=== PATIENT | female | born 1950 | race Caucasian/White ===

== ENCOUNTER → 2016-06-22 | Day surgery (SDC) | payer OTHER ==
[2016-05-27 15:03] VITALS: Ht 162.6 cm; Wt 79.5 kg
[~2016-06-22] VITALS: Ht 162.6 cm; Wt 79.5 kg
[~2016-06-22] MED LIST: ACET-1256 PO; ACET1TAB84 PO; ALBU1AER9 INH; ALBUT NEB; AMOX25TA PO; BECL0.072 INH; BUPIVACAINE 0.25% 2.5MG/ML PF 10 ML VIAL INFIL ONE; CHOLCAP5 PO; DOCU100C31 PO; IPRASOL4 INH; IPRATROPIUM NEB; LIDOCAINE HCL 1% 20 ML VIAL ONE; MELA1TAB5 PO; MELA5CAP PO; META1TAB22 PO; MONT1TAB3 PO; MULT-506 PO; NAPR1TAB9 PO; OXYC1TAB3 PO; PANT40TA PO; PREDPOW63 PO; RXC5 PO; TURM1CAP2 PO; ZNTT/150 PO; [UNRECOGNIZED DRUG - OTHER] PO
--- NOTE | 2016-06-22 13:34 | History & Physical Bridge - [place] ---
H&P Re-Evaluation Bridge Note: I have examined the patient, reviewed the History & Physical and in the interval since the performance of the History & Physical I have noted the following changes of clinical significance: No changes noted
[2016-06-22 14:35] VITALS: TEMP 37.3
--- NOTE | 2016-06-22 14:36 | Discharge Instructions ---
Discharge Instructions Date of Service Jun 22, 2016. Visit Reason for Visit: Lumbar Facet Arthropathy Discharge Discharge Diagnosis / Problem: chronic low back pain Discharge Goals Goal(s): Decrease discomfort, Improve function Activity Recommendations Activity Limitations: resume your previous activity Anesthesia . Post Anesthesia Instructions: If you have had General Anesthesia or IV Sedation: * Do not drive today. * Resume driving when surgeon permits. * Do not make important decisions or sign legal documents today. * Call surgeon for: 1. Temperature elevations greater than 101 degrees F. 2. Uncontrollable pain. 3. Excessive bleeding. 4. Persistent nausea and vomiting. 5. Medication intolerance (nausea, vomiting or rash). * For nausea and vomiting use only clear liquids such as: tea, soda, bouillon until nausea subsides, then gradually increase diet as tolerated. * If you have any concerns or questions, call your surgeon's office. If physician is unavailable and it is an emergency, call 911 or go to the nearest emergency room. . Diet Recommendations Recommended Home Diet: resume previous diet Procedures Procedures Performed: Bilateral L4-5 radio Frequency Denervation. Pending Studies Studies pending at discharge: no Medical Emergencies . Who to Call and When: Medical Emergencies: If at any time you feel your situation is an emergency, please call 911 immediately. . Non-Emergent Contact Non-Emergency issues call your: Specialist . . "Provider Documentation" section prepared by Nicholas Estrada.
[2016-06-22 14:42] VITALS: BP 157/89; PULSE 91; O2SAT 96
--- NOTE | 2016-06-22 15:00 | OPERATIVE REPORT ---
DATE OF OPERATION: 06/22/2016 PREOPERATIVE DIAGNOSES: Lumbar facet arthropathy and chronic low back pain. POSTOPERATIVE DIAGNOSES: Same. PROCEDURE: Bilateral L4-L5 facet radiofrequency denervation. INDICATIONS: The patient is a 66-year-old white female who is bothered by chronic low back pain. She underwent a radiofrequency denervation at L4-L5 on the right side more than 8 months ago and is requesting another denervation as the pain has been escalating. She notes that she now has pain on both sides and decision is made to proceed with bilateral L4-L5 radiofrequency denervation at L4-L5 to eliminate the pain for an extended period. PHYSICAL EXAMINATION: Pleasant female seated comfortably in no apparent distress. Lumbar paraspinal muscles were palpated and tender bilaterally at the L4-L5 level, worse with extension. Normal lower extremity strength, intact sensation, and negative seated straight leg raises. CONSENT: Verbal and written consent was obtained from the patient. Risks and benefits were reviewed. Risks include, but are not limited to abscess, allergic reaction, and denervation. The patient wishes to proceed. DESCRIPTION OF PROCEDURE: The patient was taken back to the special procedures room of the [facility], where she was maintained in a prone position. Backside was cleansed with Betadine x3 and a dry sterile dressing was applied. Fluoroscope was used to identify the left L4 transverse process junction and the left L5 transverse process junction. The overlying skin was anesthetized with 1.25 mL of lidocaine 1% at each level. She then underwent placement of a 22-gauge 10-cm Eva needle at each site. It contacted the bony target. She underwent sensory stimulation and was sensitive to 0.1 volts at L4 and 0.2 volts at L5. Motor stimulation provoked robust paraspinal spasms, but nothing radiating down the legs. She then underwent anesthetization with an additional mL of lidocaine at each site and then radiofrequency denervation at 80 degrees 100 seconds x2 at each site and then following the denervation, anesthetization with bupivacaine 0.25% 1 mL at each site. The right L5 transverse process junction and the right L4 transverse process junction were then fluoroscopically identified. Overlying skin was anesthetized with 1.25 mL of lidocaine 1% with a 25-gauge 1.5-inch needle. A 22-gauge 10-cm Amorita needle was then contacted the bone at each site. Sensory stimulation was present at 0.1 volts at both sites. Motor stimulation provoked localized paraspinal spasms nothing twitching down the leg. She underwent injection of anesthetization of 1% lidocaine at each site and then radiofrequency denervation at 80 degrees 100 seconds x2 at each site and then following the denervation, injection of bupivacaine 0.25% 1 mL at each site. Injections were well tolerated. DISPOSITION: 1. The patient is taken out into the discharge recovery area, where she will be discharged home once discharge criteria have been met. 2. Follow up in the [facility] office in 2-4 weeks. I attest to the content of the Intraoperative Record and any orders documented therein. Any exceptio ns are noted below.
== END | disposition home or self-care (01) ==
LOC: X.SURG 12:50
PROVIDERS: ATTEND Physical Medicine & Rehabilitation
DX: M47.816 Spondylosis without myelopathy or radiculopathy, lumbar region (principal); Z79.899 Other long term (current) drug therapy

== ENCOUNTER → 2016-11-11 | Outpatient (CLI) | payer OTHER ==
[~2016-11-11] MED LIST changes: -ALBUT NEB; -BUPIVACAINE 0.25% 2.5MG/ML PF 10 ML VIAL INFIL ONE; -CHOLCAP5 PO; -IPRATROPIUM NEB; -LIDOCAINE HCL 1% 20 ML VIAL ONE; -MELA1TAB5 PO; -MULT-506 PO; -NAPR1TAB9 PO; -PANT40TA PO; -PREDPOW63 PO; -TURM1CAP2 PO; -[UNRECOGNIZED DRUG - OTHER] PO
--- NOTE | 2016-11-11 17:35 | DIAGNOSTIC IMAGING REPORT ---
CHEST 2 VIEWS ROUTINE HISTORY: 66 years-old Female preoperative exam without reported acute chest complaints. COMPARISON: Chest radiograph 11/26/2015 TECHNIQUE: Frontal and lateral views of the chest FINDINGS: Cardiomediastinal and hilar silhouettes are within normal limits. There is atherosclerosis of the aorta. Mild biapical pleural-parenchymal scarring is noted. No pneumothorax, pleural effusion, focal airspace consolidation or overt pulmonary edema. The bones appear grossly intact. IMPRESSION: No acute cardiopulmonary process. The above report was generated using voice recognition software. It may contain grammatical, syntax or spelling errors. Electronically signed by: Jeet Luna M.D. 11/11/2016 5:34 PM Dictated Date/Time: 11/11/2016 5:33 PM
[2016-11-11 18:25] LABS: URINE APPEARANCE CLEAR (CLEAR); URINE BILIRUBIN NEG (NEG); URINE COLOR YELLOW; URINE NITRITE NEG (NEG); URINE PH 5.5 (4.5-7.5); URINE SPECIFIC GRAVITY 1.012 (1.000-1.030); UROBILINOGEN NEG (NEG)
[2016-11-11 18:26] LABS: BASO % 0.5 %; BASO ABS # 0.04 K/uL (0-0.2); COMPLETE YES; EOS % 2.6 %; HEMATOCRIT 40.7 % (37-47); IG% 0.4 %; LYMPH % 23.7 %; LYMPH ABS # 2.02 K/uL (1.2-3.4); MEAN CELL VOLUME 83.7 fL (80-100); MEAN CORPUSCULAR HEMOGLOBIN 28.8 pg (25-34); MEAN CORPUSCULAR HGB CONC 34.4 g/dl (32-36); MEAN PLATELET VOLUME 9.2 fL (7.4-10.4); MONO % 6.5 %; NEUT % 66.3 %; PLATELET COUNT 194 K/uL (130-400); RED BLOOD COUNT 4.86 M/uL (4.2-5.4); WHITE BLOOD COUNT 8.51 K/uL (4.8-10.8)
[2016-11-11 18:27] LABS: MANUAL MICROSCOPIC REQUIRED? NO; REVIEW REQ? YES
[2016-11-11 18:51] LABS: BLOOD UREA NITROGEN 18 mg/dl (7-18); BUN/CREATININE RATIO 19.8 (10-20); CALCIUM 9.1 mg/dl (8.5-10.1); CARBON DIOXIDE 29 mmol/L (21-32); CHLORIDE 105 mmol/L (98-107); CREATININE 0.89 mg/dl (0.60-1.20); GLUCOSE 94 mg/dl (70-99); POTASSIUM 3.7 mmol/L (3.5-5.1); SODIUM 140 mmol/L (136-145)
[2016-11-11 20:08] LABS: LYME DISEASE AB IGG NEG (NEG); LYME DISEASE AB IGM NEG (NEG)
== END | disposition home or self-care (01) ==
LOC: C.LAB 17:03
PROVIDERS: ATTEND Orthopaedic Surgery Orthopaedic Surgery of the Spine
DX: M48.06 Spinal stenosis, lumbar region (principal); A69.20 Lyme disease, unspecified

== ENCOUNTER 2016-11-30 09:50 | Inpatient (IN) | payer OTHER ==
[2016-09-21 11:56] VITALS: BMI 32.0
--- NOTE | 2016-09-21 12:37 | PAT Medication Instructions ---
Service Date Sep 21, 2016. Current Home Medication List Acetaminophen (Tylenol), 500 MG PO BID PRN for Pain Albuterol (Proair Hfa), 2 PUFFS INH Q4 PRN for SOB/Wheezing Beclomethasone Dipropionate (Qvar), 2 PUFFS INH BID PRN for SOB/Wheezing Cholecalciferol (Vitamin D3), 5,000 INTUNIT PO HS Docusate Sodium (Docusate Sodium), 1 CAP PO BID Ipratropium-Albuterol (Duoneb), 1 TREATMENT INH Q4H PRN for PRN Melatonin (Melatonin), 5 MG PO HS Montelukast Sodium (Singulair), 10 MG PO HS Naproxen (Aleve), 220 MG PO BID Pantoprazole (Protonix), 40 MG PO QAM PRN for PRN Ranitidine (Zantac), 150 MG PO QAM PRN for PRN Turmeric (Curcuma Longa) (Turmeric), 450 MG PO BID [Prednisone], 1 TAB PO UD Medication Instructions For Your Scheduled Surgery - Check with surgeon for instructions: Naproxen (Aleve), 220 MG PO BID - Continue as directed: [Prednisone], 1 TAB PO UD - Hold the following medications 2 weeks prior to surgery: Turmeric (Curcuma Longa) (Turmeric), 450 MG PO BID - Hold the following medications the morning of surgery: Ranitidine (Zantac), 150 MG PO QAM PRN for PRN Docusate Sodium (Docusate Sodium), 1 CAP PO BID - Take the following medications the morning of surgery with a sip of water: Pantoprazole (Protonix), 40 MG PO QAM PRN for PRN Ipratropium-Albuterol (Duoneb), 1 TREATMENT INH Q4H PRN for PRN (if needed) Acetaminophen (Tylenol), 500 MG PO BID PRN for Pain (if needed) Albuterol (Proair Hfa), 2 PUFFS INH Q4 PRN for SOB/Wheezing (bring with you to hospital morning of surgery/use if needed) Beclomethasone Dipropionate (Qvar), 2 PUFFS INH BID PRN for SOB/Wheezing (if needed) - Take the following medications as scheduled the night before surgery: Pantoprazole (Protonix), 40 MG PO QAM PRN for PRN (if needed) Montelukast Sodium (Singulair), 10 MG PO HS Melatonin (Melatonin), 5 MG PO HS Ipratropium-Albuterol (Duoneb), 1 TREATMENT INH Q4H PRN for PRN (if needed) Docusate Sodium (Docusate Sodium), 1 CAP PO BID Cholecalciferol (Vitamin D3), 5,000 INTUNIT PO HS Acetaminophen (Tylenol), 500 MG PO BID PRN for Pain (if needed) Albuterol (Proair Hfa), 2 PUFFS INH Q4 PRN for SOB/Wheezing (if needed) Beclomethasone Dipropionate (Qvar), 2 PUFFS INH BID PRN for SOB/Wheezing (if needed) If you have any questions please call us at [phone] or [phone] or [phone]
[2016-09-21 13:37] LABS: CALCIUM 8.7 mg/dl (8.5-10.1); CREATININE 0.78 mg/dl (0.60-1.20); POTASSIUM 3.8 mmol/L (3.5-5.1)
[2016-09-21 14:30] LABS: BASO % 0.6 %; BASO ABS # 0.03 K/uL (0-0.2); COMPLETE YES; EOS % 2.8 %; HEMATOCRIT 38.8 % (37-47); IG% 0.4 %; LYMPH % 30.3 %; LYMPH ABS # 1.62 K/uL (1.2-3.4); MEAN CELL VOLUME 82.7 fL (80-100); MEAN CORPUSCULAR HEMOGLOBIN 27.3 pg (25-34); MEAN PLATELET VOLUME 9.3 fL (7.4-10.4); MONO % 8.1 %; NEUT % 57.8 %; PLATELET COUNT 191 K/uL (130-400); RED BLOOD COUNT 4.69 M/uL (4.2-5.4); WHITE BLOOD COUNT 5.34 K/uL (4.8-10.8)
[2016-11-07 10:54] VITALS: BMI 32.0
[~2016-11-30] VITALS: Ht 162.6 cm; Wt 84.0 kg
[2016-11-30] VITALS (8 sets, daily range): BP systolic 115–167; BP diastolic 72–96; PULSE 60–91; TEMP 34.7–36.6; O2SAT 97–100; Ht 162.6 cm; Wt 84.0 kg
[~2016-11-30 09:50] MED LIST changes: -ACET1TAB84 PO; +CEFAZOLIN 2000 MG/60 ML D5W IV SCH; +LACTATED RINGER'S 1000ML 1,000 ML IV SCH; -RXC5 PO
[2016-11-30] MEDS ORDERED: ACET1TAB84 PO (10:12)
[2016-11-30] MEDS ORDERED: MIDAZOLAM HCL 1 MG/ML 2ML VIAL ONE (11:04)
[2016-11-30] MEDS ORDERED: FENTANYL CITRATE INJ 50 MCG/1 ML 2 ML VIAL ONE ×4 (11:04→14:01)
--- NOTE | 2016-11-30 11:06 | History and Physical ---
History & Physical Date Nov 30, 2016. Chief Complaint Back and leg pain History of Present Illness The patient is a 66 year old female with complaints of Past Medical/Surgical History Surgical Problems: (1) Post-operative state Additional History Hepatic Disease: No Endocrine Disorder: No Kidney Disease: No Hypertension: No Heart Disease: No Bleeding Tendencies: No Infectious Diseases: No Allergies Coded Allergies: Adhesives (Verified Allergy, Mild, RED ITCHY WITH [employer]ES [employer] TAPE-PAPER AND FABRIC TAPE OK, 11/30/16) Nickel (Verified Allergy, Mild, CONTACT DERMATITIS, 11/30/16) Dog Dander (Verified Allergy, Unknown, ITCHING, 11/30/16) Molds and Smuts (Verified Allergy, Unknown, RUNNY NOSE/THROAT PRURITIS, ) Gabapentin (Verified Adverse Reaction, Intermediate, "MAKE ME SPACEY AND DISORIENTATION TO SURROUNDINGS"., 11/30/16) Codeine (Verified Adverse Reaction, Mild, DROWSY, 11/30/16) Lorazepam (Verified Adverse Reaction, Mild, ANXIETY, 11/30/16) Meperidine (Verified Adverse Reaction, Mild, ANXIETY, DELUSIONS, 11/30/16) Home Medications Scheduled Acetaminophen (Tylenol Arthritis Ext Rel), 650 MG PO BID Amoxapine (Amoxapine), 25 MG PO QAM Docusate Sodium (Docusate Sodium), 1 CAP PO BID Melatonin (Melatonin), 5 MG PO HS Montelukast Sodium (Singulair), 10 MG PO QAM Scheduled PRN Albuterol (Proair Hfa), 2 PUFFS INH Q4 PRN for SOB/Wheezing Beclomethasone Dipropionate (Qvar), 2 PUFFS INH BID PRN for SOB/Wheezing Ipratropium-Albuterol (Duoneb), 1 TREATMENT INH Q4H PRN for PRN Metaxalone (Skelaxin), 200 MG PO TID PRN for Muscle Spasms Oxycodone Immediate Rel Tab (Roxicodone Ir), 2.5 MG PO Q4H PRN for Severe Pain Ranitidine (Zantac), 150 MG PO QAM PRN for PRN Physical Examination Skin: warm/dry, no rash Eyes: normal inspection, EOMI, sclerae normal ENT: normal ENT inspection, pharynx normal Head: normocephalic, atraumatic Neck: supple, no adenopathy, trachea midline Respiratory/Chest: lungs clear, normal breath sounds, no respiratory distress Cardiovascular: regular rate, rhythm, no edema, no murmur Abdomen / GI: normal bowel sounds, non tender Back: normal inspection Extremities: normal inspection, normal range of motion Neurologic/Psych: no motor/sensory deficits, alert, normal reflexes, oriented x 3 Diagnosis Lumbar spinal stenosis with spondylolisthesis Plan of Treatment Lumbar decompression fusion L3 4 L4 5
[2016-11-30] MEDS ORDERED: BUPIVACAINE/EPINEPHRINE 0.5% MPF 1:200,000 30 ML VIAL ONE (11:21)
[2016-11-30] MEDS ORDERED: BACITRACIN 50000 UNIT VIAL ONE (11:21)
[2016-11-30] MEDS ORDERED: ONDANSETRON INJ 2 MG/ML 2 ML VIAL IV PRN ×2 (11:30→14:15)
[2016-11-30] MEDS ORDERED: HYDROmorphone INJ 2 MG/ML SYR/VIAL IV PRN (11:30)
[2016-11-30] MEDS ORDERED: PHENYLEPHRINE 100MCG/ML 5ML SYR IV PRN (11:30)
[2016-11-30] MEDS ORDERED: EpHEDrine SULFATE INJ 50 MG/ML AMP IV PRN (11:30)
[2016-11-30] MEDS ORDERED: ATROPINE SULFATE 0.1 MG/ML 5ML SYR IV PRN (11:30)
[2016-11-30] MEDS ORDERED: HYDROmorphone INJ 2 MG/ML SYR/VIAL ONE ×2 (11:55→14:07)
[2016-11-30] MEDS ORDERED: PROPOFOL IV EMULSION 10 MG/ML 20 ML VIAL IV ONE (12:15)
[2016-11-30] MEDS ORDERED: LIDOCAINE HCL 2% 2 ML VIAL (20MG/ML) ONE (12:15)
[2016-11-30] MEDS ORDERED: ESMOLOL HCL 10 MG/ML 10 ML VIAL ONE (12:15)
[2016-11-30] MEDS ORDERED: METOPROLOL TARTRATE 1 MG/ML VIAL ONE (12:15)
[2016-11-30] MEDS ORDERED: ONDANSETRON INJ 2 MG/ML 2 ML VIAL ONE ×2 (12:15→14:08)
[2016-11-30] MEDS ORDERED: DEXAMETHASONE SOD INJ 4 MG/ML VIAL ONE (12:15)
[2016-11-30] MEDS ORDERED: ALBUMIN HUMAN 5% 12.5 GM/250 ML VIAL IV ONE (13:30)
[2016-11-30] MEDS ORDERED: FLOSEAL HEMOSTATIC MATRIX 10ML TOP ONE (14:00)
[2016-11-30] MEDS ORDERED: SODIUM CHLORIDE 0.9% 1000ML 1,000 ML IV SCH (14:03)
[2016-11-30] MEDS ORDERED: ROCURONIUM BROMIDE 10 MG/ML 5 ML VIAL IV ONE (14:08)
[2016-11-30] MEDS ORDERED: GLYCOPYRROLATE INJ 0.2 MG/ML VIAL ONE (14:08)
[2016-11-30] MEDS ORDERED: NEOSTIGMINE METHYLSULFATE 1 MG/ML 10ML VIAL ONE (14:08)
[2016-11-30] MEDS ORDERED: PHENYLEPHRINE 100MCG/ML 5ML SYR ONE (14:08)
[2016-11-30] MEDS ORDERED: EpHEDrine SULFATE 50MG/5ML SYR ONE (14:08)
--- NOTE | 2016-11-30 14:13 | [facility] Operative Report ---
Operative Report Operative Date Nov 30, 2016. Pre-Operative Diagnosis Lumbar spinal stenosis with spondylolisthesis Post-Operative Diagnosis Lumbar spinal stenosis with spondylolisthesis Procedure(s) Performed #1 lumbar decompression medial facetectomies foraminotomies L2 3 L3 4 for 5. #2 posterior spinal fusion L3 4 L4 5. #3 posterior segmental instrumentation L3 4 L4 5. #4 interbody fusion L3 4 L4 5. #5 placement peek cage 12 x 22 at L3 4 and L4 5. #6 locally harvested morcellized autograft in the posterior lateral gutters. #7 ostial amp in the interbody space and posterior lateral gutters. Surgeon Dr. Nicholas Feng Can Carrier Surgeon(s) YONIS Haider Estimated Blood Loss 525ml Findings Severe spinal stenosis and spondylolisthesis Specimens none per surgeon Description of Procedure He shouldn't was met with preoperatively case discussed all questions are dressed. After informed consent patient was taken the up suite and intubated placed in prone position the [place] table top Tito frame. All bony prominences and eyes were inspected to ensure there is no external pressure. Lumbar spines prepped and draped nostril fashion. Sharp dissection with the assistance of Bovie cautery was performed onto an exposing the lamina and transverse processes of L 3 L4-L5 bilaterally. From a caudal to cephalad fashion complete laminectomy of L4 and L3 and partial laminectomy of L2 was performed addressing severe lateral recessed foraminal stenosis. Pedicle screws then placed in L3 L4-L5 bilaterally. Through a transforaminal approach on the right a complete discectomy of L4 5 was performed and an plates curetted to subcortical bleeding bone. A 12 x 20 mm peek cage filled with ostial amp was then tapped in position. Again through a trans-foraminal approach on the right a complete discectomy of L3 4 was performed and plate created to subcortical bleeding bone and again a 12 x 22 mm peek cage filled with ostial amp tapped in position. Purposes rods were then contoured and placed compressed and locked and final position bilaterally. The transverse processes of L3 L4-L5 burred to subcortical bleeding bone. Remaining ostial amp locally harvested morcellized autograft was then placed in the posterior lateral gutters. 15 round DORI drain was inserted. Incision was then closed with Vicryl in the fascia 2-0 Vicryl subcutaneously for Monocryl for final skin closure Steri-Strip sterile dressing placed. Patient we can take PACU stable condition. Please note Christina Mckinley was present at the entire procedure involved in patient positioning complex portions of the surgery and final skin closure. I attest to the content of the Intraoperative Record and any orders documented therein. Any exceptions are noted below.
[2016-11-30] MEDS ORDERED: ACETAMINOPHEN IV 100 ML IV PRN (14:15)
[2016-11-30] MEDS ORDERED: BISACODYL 10 MG SUPP PR PRN (14:15)
[2016-11-30] MEDS ORDERED: DO NOT ADMINISTER FLU VACCINE PRN ×3 (14:15)
[2016-11-30] MEDS ORDERED: BECLOMETHASONE HFA 40 MCG INHALER INH PRN (14:15)
[2016-11-30] MEDS ORDERED: ALBUT/IPRATROP 3MG/0.5MG NEB 3 ML VIAL INH PRN (14:15)
[2016-11-30] MEDS ORDERED: MAGNESIUM HYDROXIDE SUSP 30 ML UDC PO PRN (14:15)
[2016-11-30] MEDS ORDERED: SOD PHOSPHATE/SOD BIPHOSPHATE ENEMA 132 ML BTL PR PRN (14:15)
[2016-11-30] MEDS ORDERED: ALUMINUM/MAGNESIUM SUSP 30 ML UDC PO PRN (14:15)
[2016-11-30] MEDS ORDERED: DO NOT ADMINISTER PNEUMOCOCCAL VACCINE PRN ×2 (14:15)
[2016-11-30] MEDS ORDERED: ALBUTEROL HFA 8 GM INHALER INH PRN (14:15)
[2016-11-30] MEDS ORDERED: hydrOXYzine HCL 25 MG TAB PO PRN (14:15)
[2016-11-30] MEDS ORDERED: METOCLOPRAMIDE HCL INJ 5 MG/ML 2 ML VIAL IV PRN (14:15)
[2016-11-30] MEDS ORDERED: NALOXONE HCL 0.4 MG/1 ML VIAL/CARP IV PRN ×2 (14:15)
[2016-11-30] MEDS ORDERED: RANITIDINE HCL 150 MG TAB PO PRN (14:15)
[2016-11-30] MEDS ORDERED: FAMOTIDINE 20 MG TAB PO PRN (14:15)
[2016-11-30] MEDS ORDERED: PROMETHAZINE HCL INJ 12.5 MG in SODIUM CHLORIDE 0.9% 50ML 50 ML IV PRN (14:15)
[2016-11-30] MEDS: HYDROmorphone HCL 0.5MG/ML 50 ML CASSETTE IV PRN ×3 (14:35→23:04)
--- NOTE | 2016-11-30 14:44 | DIAGNOSTIC IMAGING REPORT ---
LUMBAR SPINE, INTRAOPERATIVE FLUOROSCOPY HISTORY: L3-L5 decompression and fusion. FLUOROSCOPY TIME: 20 seconds. FINDINGS: Intraoperative fluoroscopy was provided for the lumbar spine. 2 fluoroscopic spot images were obtained. Posterior decompression fusion from L3 through L5 with pedicle screws and rods. The hardware appears intact. IMPRESSION: Fluoroscopy provided for a L3-L5 posterior decompression and fusion. Electronically signed by: David Omalley M.D. 11/30/2016 2:43 PM Dictated Date/Time: 11/30/2016 2:42 PM
--- NOTE | 2016-11-30 15:13 | Anesthesiology Progress Note ---
Anesthesia Post Op Note Date & Time Nov 30, 2016 at 15:13 Vital Signs Pain Intensity: 4 Vital Signs Past 12 Hours Date Time Temp Pulse Resp B/P (MAP) Pulse Ox O2 Delivery O2 Flow Rate FiO2 11/30/16 15:10 36.4 82 16 144/85 99 Nasal Cannula 4 11/30/16 15:08 77 16 98 11/30/16 15:08 79 16 11/30/16 15:06 139/77 11/30/16 15:03 86 16 11/30/16 15:03 87 16 99 11/30/16 15:01 124/87 11/30/16 14:58 79 15 99 11/30/16 14:58 78 15 11/30/16 14:56 130/84 11/30/16 14:53 79 17 11/30/16 14:53 82 17 98 11/30/16 14:52 68 19 98 11/30/16 14:52 69 19 11/30/16 14:51 131/86 11/30/16 14:47 86 23 99 11/30/16 14:47 85 23 11/30/16 14:46 70 17 139/80 99 11/30/16 14:46 70 17 11/30/16 14:41 140/77 11/30/16 14:36 87 12 142/84 99 11/30/16 14:36 86 12 11/30/16 14:31 84 17 11/30/16 14:31 85 17 150/82 100 11/30/16 14:26 84 16 149/77 99 11/30/16 14:26 84 16 11/30/16 14:21 36.1 95 16 131/80 98 Oxymask 10 11/30/16 14:21 86 12 131/80 98 11/30/16 14:21 85 12 11/30/16 10:24 36.5 89 18 167/96 97 Room Air Notes Mental Status: alert / awake / arousable, participated in evaluation Pt Amnestic to Procedure: Yes Nausea / Vomiting: adequately controlled Pain: adequately controlled Airway Patency, RR, SpO2: stable & adequate BP & HR: stable & adequate Hydration State: stable & adequate Anesthetic Complications: no major complications apparent
[2016-11-30] MEDS: SODIUM CHLORIDE 0.9% 1000ML 1,000 ML IV SCH ×2 (17:00→22:54)
[2016-11-30] MEDS: DEXAMETHASONE INJ 6 MG in SYRINGE 0 ML IV SCH ×2 (17:01→23:49)
[2016-11-30] MEDS: CEFAZOLIN IV 2,000 MG in DEXTROSE 5% 50ML 50 ML IV SCH (20:10)
[2016-11-30] MEDS: DOCUSATE SODIUM/SENNA 50/8.6MG TAB PO SCH (21:26)
[2016-11-30] MEDS: DOCUSATE SODIUM 100 MG CAP PO SCH (21:26)
[2016-11-30] MEDS: METAXALONE 800 MG TAB PO PRN (21:26)
[2016-12-01 03:00] VITALS: BP 124/80; PULSE 96; TEMP 36.7; O2SAT 96
[2016-12-01] MEDS: CEFAZOLIN IV 2,000 MG in DEXTROSE 5% 50ML 50 ML IV SCH (03:36)
[2016-12-01] MEDS ORDERED: HYDROmorphone INJ 0.5 MG/0.5 ML SYR IV PRN (06:00)
[2016-12-01] MEDS ORDERED: DC PCA SCH (06:00)
[2016-12-01] MEDS ORDERED: NURSING DECISION MEDICATION ORDER SCH (06:00)
[2016-12-01] MEDS ORDERED: HYDROmorphone INJ 1 MG/ML SYR IV PRN (06:00)
[2016-12-01 06:14] LABS: BASO % 0.1 %; BASO ABS # 0.01 K/uL (0-0.2); COMPLETE YES; HEMATOCRIT 29.8 % (37-47); IG% 0.4 %; LYMPH % 5.3 %; LYMPH ABS # 0.79 K/uL (1.2-3.4); MEAN CELL VOLUME 85.1 fL (80-100); MEAN CORPUSCULAR HEMOGLOBIN 28.9 pg (25-34); MEAN CORPUSCULAR HGB CONC 33.9 g/dl (32-36); MEAN PLATELET VOLUME 8.8 fL (7.4-10.4); MONO % 1.5 %; NEUT % 92.7 %; PLATELET COUNT 178 K/uL (130-400); WHITE BLOOD COUNT 14.92 K/uL (4.8-10.8)
[2016-12-01 06:43] LABS: BUN/CREATININE RATIO 22.1 (10-20); CALCIUM 8.2 mg/dl (8.5-10.1); CREATININE 0.75 mg/dl (0.60-1.20); POTASSIUM 4.1 mmol/L (3.5-5.1)
[2016-12-01 07:06] VITALS: BP 131/73; PULSE 98; TEMP 36.7; O2SAT 90
[2016-12-01] MEDS: MONTELUKAST SOD 10 MG TAB PO SCH (08:34)
[2016-12-01] MEDS: OXYCODONE HCL IR 5 MG TAB (IMMEDIATE RELEASE) PO PRN ×3 (08:34→21:45)
[2016-12-01] MEDS: DOCUSATE SODIUM 100 MG CAP PO SCH ×2 (08:34→21:44)
[2016-12-01] MEDS: DEXAMETHASONE INJ 6 MG in SYRINGE 0 ML IV SCH (08:35)
--- NOTE | 2016-12-01 10:34 | Progress Note ---
Progress Note Date of Service Dec 01, 2016. Progress Note Patient's back pain is well-controlled. Leg pain improved. Vital signs are stable. DORI drain decreasing appropriately. Hematocrit stable. On exam she is good strength testing bilateral lower extremity. Assessment status post lumbar decompression fusion. Plan at this time initiate physical therapy advance her bowel regiment. Considering possible rehabilitation placement Monday or Monday.
--- NOTE | 2016-12-01 11:00 | Anesthesiology Progress Note ---
Anesthesia Post Op Note Date & Time Dec 01, 2016 at 10:58 Vital Signs Pain Intensity: 2.0 Vital Signs Past 12 Hours Date Time Temp Pulse Resp B/P (MAP) Pulse Ox O2 Delivery O2 Flow Rate FiO2 12/01/16 07:25 Room Air 12/01/16 07:06 36.7 98 16 131/73 (92) 90 Room Air 12/01/16 03:00 36.7 96 16 124/80 (95) 96 Nasal Cannula 1.0 11/30/16 23:50 Nasal Cannula 2.0 11/30/16 23:40 36.6 87 16 118/79 (92) 100 Nasal Cannula 4.0 Notes Mental Status: alert / awake / arousable, participated in evaluation Pt Amnestic to Procedure: Yes Nausea / Vomiting: adequately controlled Pain: adequately controlled Airway Patency, RR, SpO2: stable & adequate BP & HR: stable & adequate Hydration State: stable & adequate Anesthetic Complications: no major complications apparent
[2016-12-01 12:14] VITALS: BP 123/78; PULSE 92; TEMP 37; O2SAT 93
[2016-12-01] MEDS ORDERED: NURSING VERBAL MED ORDER ONE (15:00)
[2016-12-01 15:07] VITALS: BP 177/92
[2016-12-01 15:50] VITALS: BP 151/89; PULSE 94; TEMP 36.9; O2SAT 96
[2016-12-01] MEDS: METAXALONE 800 MG TAB PO PRN (16:05)
[2016-12-01] MEDS: AMOXAPINE PO SCH (17:28)
[2016-12-01] MEDS: ACETAMINOPHEN 500 MG TAB PO PRN (21:45)
[2016-12-01] MEDS: DOCUSATE SODIUM/SENNA 50/8.6MG TAB PO SCH (21:59)
[2016-12-01 23:51] VITALS: BP 157/87; PULSE 109; TEMP 36.8; O2SAT 95
[2016-12-02] MEDS: METAXALONE 800 MG TAB PO PRN ×3 (00:40→23:30)
[2016-12-02] MEDS: OXYCODONE HCL IR 5 MG TAB (IMMEDIATE RELEASE) PO PRN ×4 (02:13→17:20)
[2016-12-02] MEDS: ACETAMINOPHEN 500 MG TAB PO PRN ×2 (06:22→20:40)
[2016-12-02] MEDS: POLYETHYLENE (MIRALAX) 17 GM PACK PO SCH ×4 (06:23→23:29)
[2016-12-02 07:40] VITALS: BP 156/93; PULSE 101; TEMP 36.8; O2SAT 97
[2016-12-02] MEDS: MONTELUKAST SOD 10 MG TAB PO SCH (08:35)
[2016-12-02] MEDS: DOCUSATE SODIUM 100 MG CAP PO SCH ×2 (08:50→20:39)
[2016-12-02] MEDS: AMOXAPINE PO SCH (08:50)
[2016-12-02] MEDS ORDERED: RXC5 PO (09:59)
--- NOTE | 2016-12-02 09:59 | Discharge Instructions ---
Discharge Instructions Date of Service Dec 02, 2016. Admission Reason for Admission: Spinal Stenosis Discharge Discharge Diagnosis / Problem: lumbar stenosis Discharge Goals Goal(s): Improve function Activity Recommendations Activity Limitations: per Instructions/Follow-up section . Instructions / Follow-Up Instructions / Follow-Up ACTIVITY RECOMMENDATIONS: SELF CARE INSTRUCTIONS AFTER THORACIC/LUMBAR FUSIONS 1. You may walk to your tolerance. It is good exercise for your legs and back. Expect some back and intermittent leg aches and pains. 2. You may perform "counter-top" level activities (make a sandwich, kraig with a project, etc.). 3. No bending or lifting of more than 10 pounds or back twisting of any nature (roll like a log when turning in bed). 4. You may ride in a car for 20-30 minutes at a time. No driving until after your first visit with your doctor. 5. Frequent changes of position and restricting sitting to 30 minutes at a time will help limit the amount of back spasms and stiffness you may experience. 6. You may discontinue the use of ambulatory aids (cane, crutches, etc.) once your strength and confidence allow. 7. You may supervisor asphalt paving the shower and let water strike your incision when you arrive home at least once daily. Do not take a tub bath, sit in a hot tub or go into a swimming pool until after your first recheck in the office. SPECIAL CARE INSTRUCTIONS: VERY IMPORTANT TO READ AND REVIEW A. Your surgical incision has been closed with a cosmetic suture under the skin that will dissolve in about 6 weeks. In 14 days, you can use a pair of clean scissors and cut the suture that is left outside of the skin at the ends of your incision. 1. The small skin tapes can be removed 7 days after surgery if they have not fallen off by that point. 2. You may keep the wound open to air as much as possible to promote healing after post-op day number 5 unless told otherwise by your doctor. 3. If you think the wound looks like it is becoming infected (redness or worsening drainage) and/or you are experiencing fever, chill or worsening back pain and muscle spasms, contact the office so that we may evaluate you as soon as possible. B. Complications are uncommon, but please contact us if you have any signs or symptoms of: 1. wound infection (fever higher than 102.5 degrees F, redness, separation of wound, drainage, or increasing pain from the incision) 2. blood clots in legs (pain, swelling, redness and warmth in legs) 3. urinary tract infection (fever higher than 102.5 degrees F, burning upon urination or increased frequency of urination) 4. nerve problems (inability to walk on your toes or heels, numbness, loss of bowel or bladder control) 5. any other symptoms that concern you C. Please call the office at if you have any concerns or questions about your operation or recovery. D. No smoking! Smoking drastically decreases the chance of a solid fusion. E. Do not take any anti-inflammatory medications (Indocin, Advil, Motrin, Aspirin, Naprosyn, etc.) as these may inhibit the chance of a solid fusion. Tylenol is okay to take for pain. MANAGING PAIN AFTER SPINAL SURGERY 1. Narcotic medication is intended for short-term use and will be provided for surgical pain. Surgical pain usually lasts for a period of 4-6 weeks. Narcotic medication includes Percocet, Vicodin, Darvocet, Tylenol #3 or Lortab. 2. Longer-term pain is more appropriately treated with non-narcotic medication such as Tylenol ES. 3. Muscle spasm is not appropriately treated with narcotics. Muscle relaxers such as Soma, Flexeril or Skelaxin can be used along with Tylenol ES. 4. Remember that we all live with some "aches and pains". This is not unusual or uncommon after an injury or as we get older. a. Back pain is expected and may include muscle spasms for 4 to 6 weeks after surgery. The pain should gradually improve. If the pain worsens for no apparent reason, please contact the office. b. Intermittent leg pain may also be experienced and should not be concerned about unless it worsens for no apparent reason. If so, please contact the office. 5. We will provide appropriate medication within the normal guidelines of their prescribed use. We will also be very cautious and aware of potential abuse and extended duration of patients' medication needs. a. Pain medications are for your comfort and to assist with sleep and rest so that the tissue can heal. They are not provided in order to return to normal activity and should not be used through the day. To do so or worsening pain at night can result from ongoing tissue damage and development of tolerance to the prescribed medicine. 6. Please allow 2-3 days to process refills. Prescriptions will not be mailed but must be picked up at the office. FOLLOW UP VISIT: Keep your scheduled follow-up appointment. Any questions, please call the office at . Current Hospital Diet Patient's current hospital diet: Regular Diet Discharge Diet Recommended Diet: Regular Diet Procedures Procedures Performed: #1 lumbar decompression medial facetectomies foraminotomies L2 3 L3 4 for 5. #2 posterior spinal fusion L3 4 L4 5. #3 posterior segmental instrumentation L3 4 L4 5. #4 interbody fusion L3 4 L4 5. #5 placement peek cage 12 x 22 at L3 4 and L4 5. #6 locally harvested morcellized autograft in the posterior lateral gutters. #7 ostial amp in the interbody space and posterior lateral gutters. Pending Studies Studies pending at discharge: no Medical Emergencies . Who to Call and When: Medical Emergencies: If at any time you feel your situation is an emergency, please call 911 immediately. . Non-Emergent Contact Non-Emergency issues call your: Primary Care Provider . "Provider Documentation" section prepared by Nicholas Feng. . VTE Core Measure Inpt VTE Proph given/why not?: Joel Randle, SCD's
--- NOTE | 2016-12-02 13:20 | Progress Note ---
Progress Note Date of Service Dec 02, 2016. Progress Note Patient notes improvement of her back and leg pain. She is comfortable today. Vital signs are stable. On exam she is good strength testing and waiting halls without difficulty. Assessment status post lumbar decompression fusion. Planned this time anticipate rehabilitation placement tomorrow.
[2016-12-02 14:58] VITALS: BP 144/84; PULSE 110; TEMP 36.8; O2SAT 99
[2016-12-02 16:00] VITALS: O2SAT 99
[2016-12-02] MEDS: DOCUSATE SODIUM/SENNA 50/8.6MG TAB PO SCH (20:39)
[2016-12-03 00:08] VITALS: BP 137/88; PULSE 114; TEMP 37.2; O2SAT 95
[2016-12-03] MEDS: OXYCODONE HCL IR 5 MG TAB (IMMEDIATE RELEASE) PO PRN ×3 (00:51→08:56)
[2016-12-03] MEDS: POLYETHYLENE (MIRALAX) 17 GM PACK PO SCH ×2 (05:33→12:16)
[2016-12-03] MEDS: ACETAMINOPHEN 500 MG TAB PO PRN (05:34)
[2016-12-03 08:00] VITALS: BP 156/94; PULSE 110; PULSE 114; TEMP 37; O2SAT 95
--- NOTE | 2016-12-03 08:29 | Progress Note ---
Progress Note Date of Service Dec 03, 2016. Progress Note Patient's back pain and leg pain is well-controlled today. She is in the chair and sitting comfortably. Vital signs demonstrates evidence of tachycardia otherwise stable. On exam she is good strength testing does appear comfortable. Assessment status post lumbar decompression fusion replant this time we are going to updated H&H and obtain a EKG today. Pending these results we may allow her to discharge to [facility].
[2016-12-03] MEDS: AMOXAPINE PO SCH (08:52)
[2016-12-03] MEDS: MONTELUKAST SOD 10 MG TAB PO SCH (08:53)
[2016-12-03] MEDS: METAXALONE 800 MG TAB PO PRN (08:53)
[2016-12-03] MEDS: DOCUSATE SODIUM 100 MG CAP PO SCH (08:53)
[2016-12-03 09:40] LABS: HEMATOCRIT 33.2 % (37-47)
[2016-12-03 10:41] VITALS: BP 156/94; PULSE 103; TEMP 37; O2SAT 95
--- NOTE | 2016-12-04 13:30 | Discharge Summary ---
Orthopedic Discharge Summary Admission Date/Reason Nov 30, 2016 at 11:00 Spinal Stenosis. Discharge Date/Disposition Dec 03, 2016 Rehab Diagnosis Principal Diagnosis: Lumbar spinal stenosis Admission Physical Exam As per Admitting History & Physical. Hospital Course Patient underwent lumbar decompression fusion tolerated this well as taken to the orthopedic floor postoperatively. Postoperative leash progressed appropriately and marked improvement of her leg symptoms substernally discharged to rehabilitation facility discharge orders and instructions found the chart for further review. Discharge Instructions Please refer to the electronic Patient Visit Report (Discharge Instructions) for additional information.
== END 2016-12-03 13:17 | DRG 460 ==
LOC: C.ACU 09:50 → C.3E 11:00 → ENRESERV 15:06
PROVIDERS: ADMIT Orthopaedic Surgery Orthopaedic Surgery of the Spine; ATTEND Orthopaedic Surgery Orthopaedic Surgery of the Spine
PROC: 0SG10AJ Fusion of 2 or more Lumbar Vertebral Joints with Interbody Fusion Device, Posterior Approach, Anterior Column, Open Approach (ICD-10-PCS; principal; 2016-11-30 11:35)
PROC: 0SG10J1 Fusion of 2 or more Lumbar Vertebral Joints with Synthetic Substitute, Posterior Approach, Posterior Column, Open Approach (ICD-10-PCS; principal; 2016-11-30 11:35)
PROC: 0ST40ZZ Resection of Lumbosacral Disc, Open Approach (ICD-10-PCS; principal; 2016-11-30 11:35)
DX: M48.06 Spinal stenosis, lumbar region (principal)

== ENCOUNTER 2021-08-20 06:34 | Observation (INO) ==
--- NOTE | 2021-08-06 10:05 | PAT Medication Instructions ---
Medication Instructions Date of Service August 06, 2021 Home Medications Medication Instructions Recorded albuterol sulfate 2.5 mg INHALATION Q6H #15 ml 01/06/20 beclomethasone dipropionate 40 2 inh INHALATION BID #1 inhaler 01/06/21 mcg/actuation HFA breath activated aerosol (Qvar RediHaler) albuterol sulfate 90 mcg/actuation aerosol inhaler 2 puffs INHALATION PRN PRN multivitamin (Daily Multi-Vitamin) 1 tab PO QAM cholecalciferol (vitamin D3) 125 mcg (5,000 unit) disintegrating tablet 5,000 units PO HS albuterol sulfate 2.5 mg INHALATION Q6H beclomethasone dipropionate 40 mcg/actuation HFA breath activated aerosol (Qvar RediHaler) 2 inh INHALATION BID PreserVision AREDS 1 cap PO 3XWK bupropion HCl 150 mg 24 hr tablet, extended release 150 mg PO QAM escitalopram oxalate 10 mg tablet 10 mg PO HS famotidine 10 mg tablet 10 mg PO DAILY PRN Glucosamine Chondroitin 2 cap PO QAM meloxicam 15 mg tablet 15 mg PO QAM metaxalone 800 mg tablet 400 mg PO TID PRN montelukast 10 mg tablet 10 mg PO QAM tramadol 50 mg tablet 25 mg PO BID PRN ASK your surgeon for instructions meloxicam 15 mg tablet 15 mg PO QAM STOP taking 2 weeks before surgery (or as soon as possible if surgery is within 2 weeks) PreserVision AREDS 1 cap PO 3XWK Glucosamine Chondroitin 2 cap PO QAM DO NOT take the morning of surgery multivitamin (Daily Multi-Vitamin) 1 tab PO QAM metaxalone 800 mg tablet 400 mg PO TID PRN montelukast 10 mg tablet 10 mg PO QAM Take morning of surgery With a small sip of water, OTHERWISE NOTHING TO EAT OR DRINK AFTER MIDNIGHT: albuterol sulfate 90 mcg/actuation aerosol inhaler 2 puffs INHALATION PRN PRN (use if needed; please bring rescue inhaler with you to hospital day of surgery if possible) albuterol sulfate 2.5 mg INHALATION Q6H (use if needed; please bring rescue inhaler with you to hospital day of surgery if possible) beclomethasone dipropionate 40 mcg/actuation HFA breath activated aerosol (Qvar RediHaler) 2 inh INHALATION BID bupropion HCl 150 mg 24 hr tablet, extended release 150 mg PO QAM tramadol 50 mg tablet 25 mg PO BID PRN (okay to take up to 4 hours prior to surgery if needed) Take evening before surgery albuterol sulfate 90 mcg/actuation aerosol inhaler 2 puffs INHALATION PRN PRN (if needed) cholecalciferol (vitamin D3) 125 mcg (5,000 unit) disintegrating tablet 5,000 units PO HS albuterol sulfate 2.5 mg INHALATION Q6H beclomethasone dipropionate 40 mcg/actuation HFA breath activated aerosol (Qvar RediHaler) 2 inh INHALATION BID escitalopram oxalate 10 mg tablet 10 mg PO HS famotidine 10 mg tablet 10 mg PO DAILY PRN (if needed) metaxalone 800 mg tablet 400 mg PO TID PRN (if needed) tramadol 50 mg tablet 25 mg PO BID PRN (if needed) Other Notes If you have any questions please call us at [phone] or [phone] or [phone] or [phone]
--- NOTE | 2021-08-10 09:21 | Anesthesiology Consultation ---
Date of Service August 10, 2021 Assessment & Plan (1) Encounter for pre-operative examination: - COVID screening: Per assessment on 08/10: No known COVID-19 positive contacts or current COVID-19 related symptoms. Travel screen negative. Patient vaccinate d. Surgeon arranging preop COVID testing. Awaiting results. - S/P L3-L5 decompression fusion (11/30/16): Grade 1 view, MAC# 3, ETT 7.0. No postop issues per anesthesia progress note. - S/P Left anterior LUIS ARMANDO (12/14/15): SAB at L3/4 (x1 attempt) at [facility]. No issues per post-op anesthesia progress note. - Medication sensitivity: Per patient, sensitive to many meds and may require lower doses to attain similar response- no further details. Chart Review Chart Review: Acceptable Risk for Surgery and Patient seen in Pre Admission Testing Teaching & Discussion Pre-Anesthesia Teaching/Discussion Notes: Instructed NPO after midnight before surgery,except medications with 15 cc of water. Medication instructions provided according to the PAT guidelines. History Surgery Operation Date: 08/20/21 12:50 Proposed Procedures p Right Total Hip Arthroplasty - Malcom Garcia MD Height/Weight Height: 5 ft 3 in Weight: 77.7 kg Allergies Allergy/AdvReac Type Severity Reaction Status Date / Time adhesive Allergy Mild Redness, Verified 08/06/21 11:06 itchy with snf tape use (paper/fabric okay) dog dander Allergy Mild Itching Verified 08/06/21 11:06 mold Allergy Mild Rhinorrhea, Verified 08/06/21 11:06 throat itchiness nickel Allergy Mild Contact Verified 08/06/21 11:06 dermatitis gabapentin AdvReac Intermediate Disoriented Verified 08/06/21 11:06 meperidine AdvReac Intermediate Anxiety, Verified 08/06/21 11:06 delusions codeine AdvReac Mild Drowsiness Verified 08/06/21 11:06 lorazepam AdvReac Mild Anxiety Verified 08/06/21 11:06 Codeine Derivatives AdvReac Mild Drowsiness Uncoded 08/06/21 11:06 Medications Home Medications Medication Instructions Recorded Confirmed Last Taken albuterol sulfate 90 mcg/actuation 2 puffs INHALATION PRN PRN #1 gm 11/01/18 08/06/21 Unknown aerosol inhaler multivitamin (Daily Multi-Vitamin) 1 tab PO QAM 11/23/18 08/06/21 Unknown cholecalciferol (vitamin D3) 125 5,000 units PO HS tab 01/07/19 08/06/21 Unknown mcg (5,000 unit) disintegrating tablet albuterol sulfate 2.5 mg INHALATION Q6H #15 ml 01/06/20 08/06/21 Unknown beclomethasone dipropionate 40 2 inh INHALATION BID #1 inhaler 01/06/21 08/06/21 Unknown mcg/actuation HFA breath activated aerosol (Qvar RediHaler) vitamins A,C,B-vllg-bexwas 14,320 1 cap PO 3XWK 04/14/21 08/06/21 Unknown unit-226 mg-200 unit capsule (PreserVision AREDS) bupropion HCl 150 mg 24 hr tablet, 150 mg PO QAM 08/06/21 08/06/21 Unknown extended release escitalopram oxalate 10 mg tablet 10 mg PO HS 08/06/21 08/06/21 Unknown famotidine 10 mg tablet 10 mg PO DAILY PRN 08/06/21 08/06/21 Unknown glucosamine sulf dipot 2 cap PO QAM 08/06/21 08/06/21 Unknown chlr,msm,chond 550 mg-C 30 mg-laurita 1 mg capsule (Glucosamine Chondroitin) meloxicam 15 mg tablet 15 mg PO QAM 08/06/21 08/06/21 Unknown metaxalone 800 mg tablet 400 mg PO TID PRN 08/06/21 08/06/21 Unknown montelukast 10 mg tablet 10 mg PO QAM 08/06/21 08/06/21 Unknown tramadol 50 mg tablet 25 mg PO BID PRN 08/06/21 08/06/21 Unknown Past Medical History Medical History Anxiety and depression Borderline high cholesterol GERD (gastroesophageal reflux disease) History of anemia History of blood transfusion 1985 () Hx of febrile seizure Child (none since age 5) Hx of migraines Lumbar stenosis with neurogenic claudication Nasal fracture x3, no recent issues Numbness of right hand Right hand fingers Prolapse of mitral valve "Very mild" hx, not noted on most recent echo 2019 Prolapse of vaginal vault after hysterectomy [place] [place] Reactive airway disease without asthma Spinal stenosis Exercise / Class Metabolic Activity II 4-5 Yardwork/Stairs/Walk up hill (one FS (no CP, no SOB)) Past Family History Family History Sister Ovarian cancer Asthma Mother Family history of diabetes mellitus Other No family history of adverse response to anesthesia Denies family history of Breast cancer Colorectal cancer Past Surgical History Surgical History Fusion of lumbar spine L3-L5 decompression fusion (11/30/16): Grade 1 view, MAC# 3, ETT 7.0. No postop issues per anesthesia progress note. H/O cystoscopy H/O foot surgery NEUROMA X 2 REMOVED FROM LEFT FOOT H/O rhinoplasty History of cataract surgery RT/LEFT History of colonoscopy History of esophagogastroduodenoscopy (EGD) History of gynecologic surgery PELVIC FLOOR RECONSTRUCTION History of tooth extraction History of total hip arthroplasty Left anterior LUIS ARMANDO (12/14/15): SAB at L3/4 (x1 attempt) at [facility]. No issues per post-op anesthesia progress note. S/P lumbar laminectomy S/P vaginal hysterectomy Past Anesthesia History No Hx of Anesthesia Complications and No Family Hx of Anesthesia Complications History of PONV No Hx of PONV and Hx of Motion Sickness Social History Smoking Status: Never smoker Do You Dip or Chew Tobacco: No Hx Alcohol Use: No substance use type: does not use Review of Systems Occasional dry cough r/t asthma (unchanged) Patient denies chest pain, shortness of breath, dyspnea on exertion, fever, chills, wheezing, palpitations. Physical Exam Vital Signs VITALS BP 132/88 P 72 TEMP 98.9 SP02 96%RA RESP 16 PHYSICAL Full cervical extension range of motion. Full TMJ range of motion. TMD 3 finger breaths Mallampati Score 2 Dentition: + caps/implants (sides/molars) Lungs: clear throughout to auscultation Cardiac: regular rate and rhythm, no murmurs noted Spine: normal Carotid arteries: negative bruit Extremities: no edema Lab Results Anesthesia Preop Results Results Anesthesia Widget: WBC 6.30 K/uL (4.8-10.8) 08/10/21 Hgb 13.3 g/dL (12.0-16.0) 08/10/21 Hct 40.1 % (37-47) 08/10/21 Plt 201 K/uL (130-400) 08/10/21 Na 140 mmol/L (136-145) 08/10/21 K 4.1 mmol/L (3.5-5.1) 08/10/21 Cl 106 mmol/L (98-107) 08/10/21 CO2 29 mmol/L (21-32) 08/10/21 BUN 21 mg/dl (6-23) 08/10/21 Creat 0.94 mg/dl (0.6-1.2) 08/10/21 Glucose Level 82 mg/dl (70-99(Fasting)) 08/10/21 PT 10.9 Seconds (9.0-12.0) 08/10/21 PTT 31.0 Seconds (21.0-31.0) 08/10/21 INR 1.0 (0.9-1.1) 08/10/21 Blood Type A Positive 08/10/21 Antibody Screen NEGATIVE 08/10/21 Testing Electrocardiogram Date: 08/10/21 Findings: + NSR @ (71) Chest X-Ray Date: 08/10/21 Findings: + NAD Echocardiogram Date: 02/11/20 LVEF 63%. No regional motion abnormality. Grade 1 diastolic dysfunction. Mild MR. Mitral valve prolapse is not noted on today's study. Mild TR.
[~2021-08-20 06:34] MED LIST changes: -ACET-1256 PO; +ACETAMINOPHEN 500 MG TAB PO SCH; -ALBU1AER9 INH; -AMOX25TA PO; -BECL0.072 INH; -CEFAZOLIN 2000 MG/60 ML D5W IV SCH; +CeleBREX 200 MG CAP PO SCH; -DOCU100C31 PO; +FAMOTIDINE 20 MG TAB PO SCH; -IPRASOL4 INH; -LACTATED RINGER'S 1000ML 1,000 ML IV SCH; +LR 500ML BOLUS, THEN 15ML/HR IV SCH; +LR 60ML/HR IV SCH; -MELA5CAP PO; -META1TAB22 PO; +METOCLOPRAMIDE HCL 10 MG TABLET PO SCH; -MONT1TAB3 PO; -OXYC1TAB3 PO; +TRANEXAMIC ACID 1,000 MG **IV Pre-op IV SCH; -ZNTT/150 PO; +ceFAZolin 2000MG 2,000 MG/15 ML SYR IV SCH
--- NOTE | 2021-08-20 06:53 | History & Physical Bridge Note ---
Date of Service August 20, 2021 History & Physical Bridge Note I have examined the patient, reviewed the History & Physical and in the interval since the performance of the History & Physical I have noted the following changes of clinical significance: no changes noted
[2021-08-20] MEDS ORDERED: BUPIVACAINE 0.5 % 5 MG/1 ML PF 10ML VIAL ONE (07:12)
[2021-08-20] MEDS ORDERED: MIDAZOLAM HCL 1 MG/ML 2ML VIAL ONE (07:38)
[2021-08-20] MEDS ORDERED: fentaNYL citrate 100 MCG/2 ML VIAL ONE (07:39)
[2021-08-20] MEDS ORDERED: EPINEPHrine INJ 1 MG/ML AMP ONE (08:44)
[2021-08-20] MEDS ORDERED: BUPIVACAINE 0.5 % 5 MG/1 ML MPF 30ML VIAL ONE (08:44)
[2021-08-20] MEDS ORDERED: ePHEDrine sulfate 50 MG/ML AMP IV PRN (09:03)
[2021-08-20] MEDS ORDERED: ONDANSETRON INJ 2 MG/ML 2 ML VIAL IV PRN ×2 (09:03→12:03)
[2021-08-20] MEDS ORDERED: ATROPINE SULFATE 0.1 MG/ML 10ML SYR IV PRN (09:03)
[2021-08-20] MEDS ORDERED: ePHEDrine sulfate 50 MG/ML AMP ONE (09:35)
[2021-08-20] MEDS ORDERED: PROPOFOL IV EMULSION 10 MG/ML 20 ML VIAL IV ONE (09:37)
--- NOTE | 2021-08-20 11:04 | Operative Report ---
PG Post Operative Report Pre & Post Diagnosis Operation Date: 08/20/21 08:50 Pre-Op Diagnosis: Right Hip Advanced Degenerative Joint Disease Post-Op Diagnosis: Right Hip Advanced Degenerative Joint Disease plus chronic right hip abductor avulsion I identified the patient and participated in the time-out.: Yes Procedure Operation Date: 08/20/21 08:50 Actual Procedures p Right Total Hip Arthroplasty--Uncemented(Right) - Malcom Garcia MD Right hip abductor avulsion repair Surgeon Malcom Garcia MD Boat Finisher Karlo Mata PA-C Estimated Blood Loss 200 Findings Consistent with Post-Op Diagnosis Operative findings real advanced right hip DJD. She had grade 4 fdoe-hd-ystw disease of the femoral head and acetabulum. She had anterior and posterior acetabular osteophytes. Small to moderate sized hip joint effusion.. The patient did have a chronic hip abductor avulsion which was repaired at the end of the case. Fluids 1000 cc Specimens Right femoral head sent for pathology Drains None Anesthesia Type Spinal MAC Complications none Disposition Accompanied Patient To Recovery: Yes Indications Patient is a 71-year-old female has had a several year history of increased right hip pain discomfort got markedly worse over the past year. X-rays show progressive loss of her joint space and progressive arthritic changes. She failed conservative measures. She does have to use a cane to get around to the pain. She elected proceed with right total hip replacement. Description of Procedure Operative implants consist of: 1. Biomet G7 size 50 mm acetabular shell. 2. Tumtum hole mails supervisor. 3. 6.5 cancellous acetabular screws 1 of 35 mm length 125 mm length. 4. Highly cross-linked polyethylene liner with a 58 mm outer diameter and 36 mm inner diameter. 5. DePuy Corail size 10 short neck 125 degree angle femoral component. 6. +5/36 mm ceramic articular ball. The patient was taken the operating, identified, placed on the operating table supine position protectors were properly padded. IV antibiotics tried by anesthesia team. A spinal anesthetic and been implemented holding area. Dubon catheter was placed in sterile fashion. Patient then placed in the left lateral cubitus position. Axillary roll was placed. A Stulberg hip positioner was used for positioning. The right hip and leg were then prepped and draped in usual sterile fashion. A posterolateral approach to the right hip was then performed through a curvilinear incision centered over the greater trochanter. Sharp dissection was carried through subcutaneous tissue down to the IT band gluteal fascia. The IT band gluteal fascia was lysed longitudinally in line with skin incision. The underlying greater bursa was excised. She did have a chronic hip abductor avulsion. The piriformis and external rotators were tagged and taken off the posterior aspect hip joint capsule. Great care was taken throughout the procedure protect the sciatic nerve at all times. Posterior capsulotomy was then performed and a large flap for later repair. It was hip was internally rotated and dislocated. Femoral neck osteotomy cut was made with Final Cut about 7 mm above the lesser trochanter. Femoral head was removed and sent for pathology. The femur was retracted anteriorly. Attention drawn the acetabulum. The acetabular labrum was excised. The pulmonary fat was excised. The labrum was fairly well ossified. Sequential reaming the acetabular was then performed begin with size 43 and progressing up to 49. I did reamed with a 50 reamer and then placed a 50 mm Biomet G7 acetabular shell in about 40 degrees lateral opening and 20 degrees of anteversion. We did try to increase the anteversion slightly due to her history of back fusion and increased risk for instability. Some small anterior osteophytes were removed. A trial liner was placed. We used a 36 head in order to maximize her stability. Attention drawn the femur. The proximal femur was entered with a [employer] cutter followed by canal finder. I then broached begin the size 8 and progressing up to a 9. Proximal dimensions felt pretty tight and I was not sure I can get a bigger implant and so we stopped there. We trialed the hip and the standard neck was just too tight with too much offset. Therefore we used the 125 degree angle short neck stem. This leg was already equal to a slightly longer than the other leg and I was hoping to maybe shorten her just a little bit. With this construct, of the soft tissue tension seemed appropriate. Just a little bit tight anteriorly. The hip was fully stable in full extension and external rotation flexion to 9 degrees internal rotation over [address] We elect to place these implants. Nupathe all trial implants were removed. An apex hole mails supervisor was placed. Highly cross-linked polyethylene liner was placed. A DePuy size 10 KLA short neck 125 degree angle stem was impacted in position. +5/36 mm articular ball was placed. We placed a large ball in order to maximize her stability due to her previous spine fusion. Hip was once again checked and found to be stable. Attention drawn toward closing. The wounds irrigated scope soft pulsatile lavage solution. We did inject locally with 60 cc of half percent Marcaine with epinephrine. The posterior capsule and external rotators were repaired through drill holes in the posterior trochanter with #2 Tycron suture. The IT band gluteal fascia then closed in 1 PDS suture in a running fashion. I then placed a a single Biomet juggernaut anchor through the trochanter. I then fed to the sutures through the anterior hip abductors and then to through the superior. We tied this down nicely. I then repaired some of the fascia over the trochanter with #1 Vicryl suture. The IT band gluteal fascia then closed with #1 PDS suture running fashion the subcutaneous tissue was then closed with 2 layers the deep layer #1 Vicryl suture in the subcutaneous tissues with 2-0 Dexon suture in a buried interrupted fashion the skin was closed skin stable. Leg was then cleaned and dried and a Prevena VAC dressing was applied due to the adhesive allergies and desire not to take dressing on and off. The patient was then transferred to the recovery room in stable condition. Patient tolerated procedure well and there were no complications. Karlo Mata, my physician assistant brand manager, was present for the entire procedure. His assistance was essential and required for appropriate patient positioning, prepping and draping, surgical exposure, performing the technical details of the operation, placement the implants, closure of the wound, and placement of the sterile bandage. I attest to the content of the Intraoperative Record and any orders documented therein. Any exceptions are noted below.
[2021-08-20] MEDS: fentaNYL citrate 100 MCG/2 ML VIAL IV PRN ×4 (11:45→13:21)
--- NOTE | 2021-08-20 11:47 | XRay Report ---
XR hip 1V RT w pelvis CLINICAL HISTORY: Postoperative evaluation. COMPARISON: Right hip radiographs August 05, 2021. FINDINGS: Alignment of the total right hip arthroplasty is anatomic. There is no periprosthetic frac ture or unexpected radiopaque foreign body. There are skin kyara. Acetabular screws are noted. Left hip arthroplasty is noted as well as postoperative findings within the lumbosacral spine. IMPRESSION: Expected findings following total right hip arthroplasty. ACT 112: Negative or not required by law. Electronically signed by: Gonzalo Lin M.D. 08/20/2021 11:45 AM
[2021-08-20] MEDS ORDERED: bisacodyL 10 MG SUPP PR PRN (12:03)
[2021-08-20] MEDS ORDERED: FAMOTIDINE 10 MG TABLET PO PRN (12:03)
[2021-08-20] MEDS ORDERED: ALBUTEROL HFA 8 GM INHALER INH PRN (12:03)
[2021-08-20] MEDS ORDERED: MAGNESIUM HYDROXIDE SUSP 30 ML UDC PO PRN (12:03)
[2021-08-20] MEDS ORDERED: METOCLOPRAMIDE HCL INJ 5 MG/ML 2 ML VIAL IV PRN (12:03)
[2021-08-20] MEDS ORDERED: ALUMINUM/MAGNESIUM SUSP 30 ML UDC PO PRN (12:03)
[2021-08-20] MEDS ORDERED: NALOXONE HCL 0.4 MG/1 ML VIAL/CARP IV PRN (12:03)
[2021-08-20] MEDS ORDERED: ALBUTEROL 0.083% NEBU SOLN 3 ML VIAL INH PRN (12:03)
[2021-08-20] MEDS: traMADol HCL 50 MG TABLET PO PRN ×2 (13:26→21:47)
[2021-08-20] MEDS ORDERED: KETOROLAC 30 MG/ML VIAL ONE (13:47)
[2021-08-20] MEDS: ACETAMINOPHEN 500 MG TAB PO SCH ×2 (13:48→21:48)
[2021-08-20] MEDS: KETOROLAC TROMETHAMINE 15 MG/ML VIAL IV SCH ×3 (13:49→19:57)
--- NOTE | 2021-08-20 14:02 | Anesthesiology Progress Note ---
Date of Service August 20, 2021 Anesthesia Post Procedure Vital Signs Vital Signs: Temp Pulse Pulse Resp BP Pulse Ox 08/20/21 13:25 36.5 C 81 20 165/92 H 97 08/20/21 12:55 79 16 155/84 H 96 08/20/21 12:40 36 C L 81 14 154/80 H 94 08/20/21 12:25 87 16 156/93 H 93 08/20/21 12:10 73 19 141/79 H 95 08/20/21 11:55 70 21 133/76 93 08/20/21 11:40 36.6 C 74 17 126/75 97 08/20/21 11:30 69 16 127/70 100 08/20/21 11:20 69 15 131/73 100 08/20/21 11:10 71 12 132/77 100 08/20/21 11:00 72 19 130/73 100 08/20/21 10:51 37 C 73 23 136/71 99 08/20/21 07:09 37 C 74 18 153/85 H 95 Pain Intensity Right Hip: Pain Intensity: 2 Transfer of Care Handoff Completed per policy Notes Mental Status: alert / awake / arousable and participated in evaluation Patient Amnestic to Procedure: Yes Nausea / Vomiting: adequately controlled Pain: adequately controlled Airway Patency, RR, SpO2: stable & adequate BP & HR: stable & adequate Hydration State: stable & adequate Neuraxial Anesthesia: was administered and sensory block is resolving Anesthetic Complications: no major complications apparent and Pt Satisfied with anesthetic care
[2021-08-20] MEDS: SODIUM CHLORIDE 0.9% 1000ML 1,000 ML IV SCH (16:24)
[2021-08-20] MEDS: HYDROmorphone INJ 0.5 MG/0.5 ML SYR IV PRN ×2 (16:29→22:34)
[2021-08-20] MEDS ORDERED: TRANEXAMIC ACID / 0.7% NACL 1,000 MG/100 ML BAG IV SCH (17:00)
[2021-08-20] MEDS: ceFAZolin 1000MG 1,000 MG/7.5 ML SYR IV SCH (17:34)
--- NOTE | 2021-08-20 19:00 | Progress Notes ---
DATE OF NOTE: 08/20/2021. SUBJECTIVE: A 71-year-old female postoperative from right hip replacement. She is doing well. Real ly not having much pain. She took some pain medicine, it is working well. No chest pain or shortnes s of breath. Not feeling dizzy or lightheaded. OBJECTIVE: VITAL SIGNS: Temperature is 36.9. Vital signs are stable. GENERAL: Shows a pleasant middle-aged female. She is sitting up in bed and eating her dinner. Look s comfortable. LUNGS: Clear to auscultation. HEART: Regular rate and rhythm. ABDOMEN: Soft, nontender, nondistended. EXTREMITIES: Grossly neurovascularly intact except as follows. Examination of the right leg reveals the leg lengths to be equal. Dressing is clean, dry and intact. Thigh is soft and supple. She can dorsiflex and plantarflex her foot appropriately. X-RAYS: X-rays of the right hip from recovery room are reviewed. It shows a right uncemented hip re placement. Components looked to be in good position. No signs of problems. ASSESSMENT: A 71-year-old female postop from right hip replacement, doing well. Pain is controlled. Hip is located. She is neurologically intact. PLAN: 1. DVT prophylaxis including thigh-high TEDs, SCDs, and aspirin twice a day. 2. PT, OT, weightbear as tolerated. Right total hip protocol. 3. Pain control, doing well with current pain regimen. 4. IV antibiotics x24 hours. 5. Disposition: Plan is to discharge to home with some home health and her 's assistance whe n she is adequately recovered and getting around safely. Job ID: [id number]
[2021-08-20] MEDS: ASPIRIN 81 MG ECTAB PO SCH (19:56)
[2021-08-20] MEDS: DOCUSATE SODIUM 100 MG CAP PO SCH (19:58)
[2021-08-20] MEDS ORDERED: CHOLECALCIFEROL 5,000 UNITS 125 MCG TAB PO SCH (21:00)
[2021-08-20] MEDS ORDERED: SENNA 8.6 MG TAB PO SCH (21:00)
[2021-08-20] MEDS ORDERED: ESCITALOPRAM OXALATE 10 MG TAB PO SCH (21:00)
[2021-08-20] MEDS: METAXALONE 800 MG TABLET PO PRN (22:56)
[2021-08-21] MEDS: KETOROLAC TROMETHAMINE 15 MG/ML VIAL IV SCH ×3 (00:49→13:53)
[2021-08-21] MEDS: ceFAZolin 1000MG 1,000 MG/7.5 ML SYR IV SCH (00:50)
[2021-08-21] MEDS: SODIUM CHLORIDE 0.9% 1000ML 1,000 ML IV SCH (00:50)
[2021-08-21] MEDS: HYDROmorphone INJ 0.5 MG/0.5 ML SYR IV PRN (05:30)
[2021-08-21] MEDS: ACETAMINOPHEN 500 MG TAB PO SCH ×2 (05:32→13:53)
[2021-08-21] MEDS: METAXALONE 800 MG TABLET PO PRN (05:33)
[2021-08-21 06:21] LABS: Basophils # (auto) 0.02 K/uL (0-0.2); Basophils % (auto) 0.2 %; Eosinophils # (auto) 0.09 K/uL (0-0.5); Eosinophils % (auto) 0.7 %; Hematocrit (blood only) 35.6 % (37-47); Hemoglobin 11.8 g/dL (12.0-16.0); Immature Granulocytes # (auto) 0.02 K/uL (0.00-0.02); Immature Granulocytes % (auto) 0.2 %; Lymphocytes # (auto) 0.94 K/uL (1.2-3.4); Lymphocytes % (auto) 7.7 %; Mean Corpuscular Hemoglobin 29.2 pg (25-34); Mean Corpuscular Hgb Conc 33.1 g/dL (32-36); Mean Corpuscular Volume 88.1 fL (80-100); Mean Platelet Volume 9.3 fL (7.4-10.4); Monocytes # (auto) 0.75 K/uL (0.11-0.59); Monocytes % (auto) 6.2 %; Neutrophils # (auto) 10.37 K/uL (1.4-6.5); Platelet Count 151 K/uL (130-400); RDW Coefficient of Variation 13.5 % (11.5-14.5); RDW Standard Deviation 43.6 fL (36.4-46.3); Red Blood Count 4.04 M/uL (4.2-5.4); White Blood Count 12.19 K/uL (4.8-10.8)
[2021-08-21 06:47] LABS: Est GFR (African American) 72.2 ml/min; Potassium 3.9 mmol/L (3.5-5.1)
[2021-08-21 06:48] LABS: BUN Creatinine Ratio 19.4 (10-20); Creatinine Clr Calc Pharmacy 55.2 ml/min; Est GFR (Non-African American) 62.3 ml/min
--- NOTE | 2021-08-21 07:15 | Orthopedic Progress Note ---
Date of Service August 21, 2021 Assessment & Plan (1) Status post right hip replacement: Overall she is doing fairly well. She is on a muscle relaxant for her muscle spasms. She will be seen by physical therapy today for ambulation and range of motion exercises. She feels as long as she has the Toradol and the Dilaudid, she should be okay for discharge today. We will see how she does with physical therapy. If she does well she can be discharged home later today. She will follow-up with orthopedics in 2 weeks. She is on aspirin for DVT prophylaxis. Payam Crook was seen and examined at bedside this morning. Overall she is doing fairly well. She is complaining of mostly muscle spasms. Her pain seems relatively well controlled. She has been up and using the commode. She has no other complaints. Review of Systems All systems reviewed & are unremarkable except as noted in HPI & below. Physical Exam On physical examination of the right hip, there is a Prevena VAC dressing in place. Her leg lengths are equal. She has active dorsiflexion plantarflexion of her right ankle. Results & Data Results & Data Laboratory Results . Diagnostic Findings . PG Care Time/CCT Total # of Minutes Spent Total Time Spent with Patient: Total time spent is greater than 50% in coordination of care (as documented) at patient's floor/unit and/or counseling patient: Coding Level of Care Code 93655 Post Operative Follow-Up Diagnoses Status post right hip replacement Z96.641
[2021-08-21] MEDS: ASPIRIN 81 MG ECTAB PO SCH (07:48)
[2021-08-21] MEDS: DOCUSATE SODIUM 100 MG CAP PO SCH (07:48)
[2021-08-21] MEDS ORDERED: dexAMETHasone 10 MG in SYRINGE 0 ML IV SCH (08:00)
[2021-08-21] MEDS ORDERED: MULTIVITAMIN TAB PO SCH (09:00)
[2021-08-21] MEDS ORDERED: NON-FORMULARY MEDICATION (Glucos Sul 2kcl-Msm-Chond-C-Mn [Glucosamine Chondroitin] 550-30- PO SCH (09:00)
[2021-08-21] MEDS ORDERED: buPROPion XL 150 MG TABCR PO SCH (09:00)
[2021-08-21] MEDS ORDERED: MONTELUKAST SODIUM 10 MG TABLET PO SCH (09:00)
[2021-08-21] MEDS: traMADol HCL 50 MG TABLET PO PRN (09:21)
--- NOTE | 2021-08-26 15:21 | Discharge Summary ---
Date of Service August 26, 2021 Discharge Data Procedures Performed Operation Date: 08/20/21 08:50 Actual Procedures p Right Total Hip Arthroplasty--Uncemented(Right) - Malcom Garcia MD Hospital Course (1) S/P total right hip arthroplasty: This is a 71 year old patient admitted on 08/20/21 and underwent total hip arthroplasty. She tolerated the procedure well and there were no complications. Transferred to the PACU post op and later to the orthopedic floor for further care. She was given ancef for antibiotic prophylaxis. She was also given GURU stockings, SCDs, and aspirin for DVT prophylaxis. Hemoglobin, hematocrit, and vital signs were monitored during her hospital stay and remained stable. Did not require any blood transfusions. There were no complications during her hospital stay. By post op day #1 the patient was tolerating a regular diet, pain was reasonably controlled with oral pain medicine, and she was participating in physical therapy. On post op day #1 the patient was discharged home and set up with home health care. She was given printed discharge instructions including prescriptions for extra strength tylenol, aspirin, toradol, dilaudid, and zofra n. Continue physical therapy, weight bearing as tolerated. Continue hip precautions. Continue GURU stockings. Follow up approximately 2 weeks post op or sooner if there are problems or concerns. Coding Level of Care Code None Diagnoses S/P total right hip arthroplasty Z96.641
== END 2021-08-21 16:17 | disposition home health service (06) ==
LOC: ASU 06:34 → PACUINP 06:34 → 3E 15:33